=== PATIENT | female | born 1970 | race Caucasian/White ===

== ENCOUNTER → 2018-08-19 | Outpatient (CLI) | payer BC ==
--- NOTE | 2018-08-19 14:28 | PCVCIMAG ---
APPROVED REPORT Study performed: 08/19/2018 11:32:22 Exam: Stress Echocardiogram Indication: Dyspnea, fatigue, chest discomfort, tachycardia Patient Location: Echo lab Stress Nurse: Marjorie Lopez RN Room #: 2 Status: routine Ht: 5 ft 8 in HR: 81 bpm BP: 112/70 mmHg Rhythm: NSR Medical History Medical History: Hyperlipidemia Cardiac Risk Factors: Hyperlipidemia, FHX of CAD Previous Cardiac Procedures: none Pretest Chest Pain Characteristics: No chest pain Exercise History: Indeterminate Procedure The patient underwent an Exercise Stress Test using the Alexander Protocol. Blood pressure, heart rate, and EKG were monitored. An Echocardiogram was performed by debug technician in four stages in quad fashion. At peak stress, four selected images were obtained and placed side by side with resting images for comparison. Stress Test Details Stress Test: Exercise stress testing was performed using a Alexander protocol. HR Resting HR: 81 bpmMax Heart Rate (APMHR): 174 bpm Max HR Achieved: 176 bpmTarget HR (85% APMHR): 147 bpm % of APMHR: 101 Recovery HR: 100 bpm HR response to stress: Normal HR response to stress BP Resting BP: 112/70 mmHg Max BP: 160/80 mmHg Recovery BP: 156/80 mmHg BP response to stress: Normal blood pressure response to stress. ECG Resting ECG: Sinus Rhythm Stress ECG: Sinus Rhythm, nonspecific ST-T abnormalities ST Change: Non-ischemic Arrhythmia: Rare PVC Recovery ECG: Sinus Rhythm Recovery ST Change: Non-ischemic Recovery Arrhythmia: None Clinical Reason for Termination: Maximal effort Stress Symptoms: none Exercise duration: 9 min 31 sec Highest Stage Achieved: Stage 4: 4.2 mph at 16% grade. Exercise capacity: 11.7 METs Overall Exercise Capacity for Age: Good Scale: Active Angina Score: None No complications. Stress ECG Conclusion The patient exercised according to the ALEXANDER protocol for 9:31 mins; achieving a work level of 11.7 METS. The resting heart rate of 66 bpm ulices to a maximum heart rate of176 bpm. This value represent 101% of the maximal, age-predicted heart rate. The resting blood pressure of 112/70 mmHg, ulices to a maximum blood pressure of 160/80 mmHg. The exercise test was stopped due to fatigue. Pre-Stress Echo The resting Echocardiogram showed normal left ventricular contractility with an estimated Ejection Fraction of about 55-60%. Normal wall motion in all segments on baseline images. Post-Stress Echo The stress Echocardiogram showed normal left ventricular contractility with an estimated Ejection Fraction of about 65-70%. Normal augmentation of wall motion in all segments on post stress images. Clinical No clinical or ECG evidence for ischemia. Conclusion Clinical Response: Non-ischemic Exercise Capacity: Average Stress ECG Response: Non-ischemic Stress Echo Images: Non-ischemic No clinical, EKG or echocardiographic evidence for ischemia. No echocardiographic evidence for exercise induced ischemia. Normal stress echocardiogram with maximal exercise stress. No prior study available for comparison. <Conclusion> No clinical, EKG or echocardiographic evidence for ischemia. No echocardiographic evidence for exercise induced ischemia. Normal stress echocardiogram with maximal exercise stress.
== END | disposition home or self-care (01) ==
LOC: PCVCIMAG 11:22
PROVIDERS: ATTEND Internal Medicine Cardiovascular Disease
DX: R06.09 Other forms of dyspnea (principal); R53.83 Other fatigue; R07.89 Other chest pain; R00.0 Tachycardia, unspecified
CPT/HCPCS: 93325; 93351